=== PATIENT | female | born 2005 | race Caucasian/White ===

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

== ENCOUNTER → 2024-04-02 | Outpatient (CLI) | payer MEDICAID, OTHER ==
[2024-04-02 15:22] LABS: Anisocytosis Slight; Basophils % (A) 1 %; Eosinophils # (A) 0.1 k/uL (0-0.7); Eosinophils % (A) 1 %; HCT 39.9 % (34.0-46.0); HGB 12.6 gm/dL (11.4-16.0); Hypochromasia Slight; Lymphocytes # (A) 2.3 k/uL (1.0-4.8); Lymphocytes % (A) 28 %; MCH 23.6 pg (25.0-35.0); MCHC 31.5 g/dL (31.0-37.0); MCV 74.9 fL (80.0-100.0); Mean Platelet Volume 7.7; Microcytosis Slight; Monocytes # (A) 0.4 k/uL (0-1.0); Monocytes % (A) 4 %; Neutrophils # (A) 5.4 k/uL (1.3-7.7); Neutrophils % (A) 65 %; Platelet Count 312 k/uL (150-450); RBC 5.33 m/uL (3.80-5.40); RDW 16.4 % (11.5-15.5); Reticulocyte % 2.3 % (0.5-2.0); WBC 8.3 k/uL (4.0-11.0)
[2024-04-02 15:29] LABS: INR 0.9 (<1.2); Prothrombin Time 10.1 sec (10.0-12.5)
[2024-04-02 15:37] LABS: ALT 155 U/L (4-34); AST 55 U/L (14-36); African American GFR (CKD) >90 (>60 ml/min/1.73 sqM); Albumin 4.1 g/dL (3.5-5.0); Albumin/Globulin Ratio 1.1; Alkaline Phosphatase 106 U/L (38-126); Anion Gap 12 mmol/L; Blood Urea Nitrogen 9 mg/dL (7-17); Calcium 9.6 mg/dL (8.4-10.2); Carbon Dioxide 21 mmol/L (22-30); Chloride 106 mmol/L (98-107); Globulin 3.8 g/dL; Glucose 82 mg/dL (74-99); Non-African American GFR(CKD) >90 (>60 ml/min/1.73 sqM); Potassium 4.1 mmol/L (3.5-5.1); Sodium 139 mmol/L (137-145); Total Bilirubin 0.5 mg/dL (0.2-1.3); Total Protein 7.9 g/dL (6.3-8.2)
[2024-04-02 19:44] LABS: % Iron Saturation 6.53 (12.00-45.00); Ferritin 32.6 ng/mL (10.0-291.0); Iron 26 UG/DL (50-170); Total Iron Binding Capacity 398 UG/DL (228-460)
== END | disposition home or self-care (01) ==
LOC: LABWHC1 14:32
DX: Z01.89 Encounter for other specified special examinations (principal); Z13.29 Encounter for screening for other suspected endocrine disorder; Z13.0 Encounter for screening for diseases of the blood and blood-forming organs and certain disorders involving the immune mechanism; Z13.21 Encounter for screening for nutritional disorder; Z13.228 Encounter for screening for other metabolic disorders; Z13.220 Encounter for screening for lipoid disorders; R79.89 Other specified abnormal findings of blood chemistry; R21 Rash and other nonspecific skin eruption; R23.3 Spontaneous ecchymoses; R16.1 Splenomegaly, not elsewhere classified
CPT/HCPCS: 36415; 80053; 82607; 82728; 83540; 83550; 85025; 85045; 85610; 85730

== ENCOUNTER → 2024-05-03 | Outpatient (CLI) | payer MEDICAID, OTHER ==
[2024-05-03 22:07] LABS: Chol/HDL Ratio 3.43 Ratio; Creatine Kinase 44 U/L (26-186); LDL Cholesterol,Calculated 115.3 mg/dL (0.0-131.0); Rheumatoid Factor, Qnt <15 IU/mL (0-15)
[2024-05-03 22:09] LABS: Basophils # (A) 0.04 X 10*3/uL (0.00-0.10); Basophils % (A) 0.6 %; Eosinophils # (A) 0.07 X 10*3/uL (0.04-0.35); HCT 42.4 % (37.2-46.3); HGB 12.5 g/dL (12.0-15.0); Lymphocytes # (A) 2.29 X 10*3/uL (0.90-5.00); Lymphocytes % (A) 32.4 %; MCH 23.1 pg (27.0-32.0); MCHC 29.5 g/dL (32.0-37.0); MCV 78.5 FL (80.0-97.0); Mean Platelet Volume 11.3 FL (9.5-12.2); Monocytes # (A) 0.39 X 10*3/uL (0.20-1.00); Monocytes % (A) 5.5 %; NRBC Per 100 WBC 0 X 10*3/uL (0.00-0.01); Neutrophils # (A) 4.25 X 10*3/uL (1.80-7.70); Neutrophils % (A) 60.2 %; Platelet Count 346 X 10*3/uL (140-440); RDW 17.2 % (11.5-14.5); WBC 7.06 X 10*3/uL (4.50-10.00)
[2024-05-03 22:18] LABS: Hepatitis A Antibody IgM Nonreactive (Nonreactive); Hepatitis B Core IgM Nonreactive (Nonreactive); Hepatitis B Surface Antigen Nonreactive (Nonreactive); Hepatitis C IgG Antibody Nonreactive (Nonreactive)
[2024-05-03 22:19] LABS: Erythrocyte Sedimentation Rate 55 mm/Hr (0-20)
[2024-05-03 22:49] LABS: Cyclic Citrull Pep IgG Unit <1.5 U/mL (<=3.9); Cyclic Citrullinated Pep IgG Negative
[2024-05-04 13:09] LABS: C-ANCA <1:20 Titer (<1:20)
[2024-05-04 20:46] LABS: Thyroid Stim Immun Quant <0.10 IU/L (<0.10)
== END | disposition home or self-care (01) ==
LOC: LABWHC1 13:43
PROVIDERS: ATTEND Internal Medicine
DX: Z01.89 Encounter for other specified special examinations (principal); Z13.220 Encounter for screening for lipoid disorders; Z13.0 Encounter for screening for diseases of the blood and blood-forming organs and certain disorders involving the immune mechanism; Z13.21 Encounter for screening for nutritional disorder; Z13.228 Encounter for screening for other metabolic disorders; R23.3 Spontaneous ecchymoses; R16.1 Splenomegaly, not elsewhere classified; R79.89 Other specified abnormal findings of blood chemistry; R21 Rash and other nonspecific skin eruption
CPT/HCPCS: 36415; 80061; 80074; 82550; 82746; 84432; 84443; 84445; 84481; 85025; 85652; 86038; 86140; 86162; 86200; 86255; 86376; 86431; 86800